=== PATIENT | male | born 1975 | race African-American/Black ===

== ENCOUNTER 2024-09-25 21:13 | Emergency (ER) | payer SELFPAY ==
[~2024-09-25] VITALS: Ht 170.2 cm; Wt 181.8 kg
[2024-09-26] MEDS ORDERED: CEPH-558 PO (01:25)
[2024-09-26] MEDS ORDERED: SULF-261 PO (01:25)
[2024-09-26] MEDS: CefTRIAXone SODIUM 1 GM/VIAL IM ONE (01:37)
[2024-09-26] MEDS: SULFAMETHOX/TRIMETH DS 800-160 MG/TABLET PO ONE (01:38)
[2024-09-26] MEDS: LIDOCAINE/PF 1% 2 ML VIAL IM ONE (01:38)
[2024-09-26 01:51] VITALS: BP 145/65; PULSE 89; RESP 18; TEMP 97.7; O2SAT 97
== END 2024-09-26 03:24 | disposition home or self-care (01) ==
LOC: EMS 21:13
DX: L03.311 Cellulitis of abdominal wall (principal); I10 Essential (primary) hypertension; Z79.899 Other long term (current) drug therapy; W57.XXXA Bitten or stung by nonvenomous insect and other nonvenomous arthropods, initial encounter
CPT/HCPCS: 99283; 96372; J0696; J3490

== ENCOUNTER 2024-10-24 22:42 | Emergency (ER) | payer MEDICAID ==
[~2024-10-24] VITALS: Ht 170.2 cm; Wt 159.1 kg
[~2024-10-24 22:42] MED LIST: CEPH-558 PO; SULF-261 PO
[2024-10-24 22:47] VITALS: BP 163/98; PULSE 96; RESP 18; TEMP 99; O2SAT 99
[2024-10-24 23:15] LABS: PLATELET COUNT (AUTO) 195 K/uL (150-450); RED BLOOD CELL COUNT(AUTO) 4.95 MIL/uL (4.50-5.90); RED CELL DISTRIBUTION WIDTH 14.4 % (11.5-14.5); WHITE BLOOD COUNT (AUTO) 5.5 K/uL (4.5-11.0)
[2024-10-24 23:24] LABS: CALCIUM, TOTAL 8.8 mg/dL (8.8-10.5); CREATININE 1.14 mg/dL (0.60-1.30); GLOMERULAR FILTR. RATE CALC > 60 mL/min (>60); GLUCOSE,RANDOM 94 mg/dL (70-110); SODIUM SERUM 137 mmol/L (136-145); UREA NITROGEN, BLOOD 10 mg/dL (7-18)
[2024-10-25 01:27] LABS: APPEARANCE,URINE HAZY (CLEAR); GLUCOSE, URINE (UA) NEGATIVE (NEGATIVE); LEUKOCYTE ESTERASE ,URINE NEGATIVE (NEGATIVE); NITRATE,URINE NEGATIVE (NEGATIVE); OCCULT BLOOD,URINE LARGE (NEGATIVE); SPECIFIC GRAVITIY, URINE 1.013 (1.003-1.030)
[2024-10-25 02:06] LABS: SQUAMOUS EPITHELIAL CELL,UR Few /LPF (None Seen)
== END 2024-10-25 04:13 | disposition home or self-care (01) ==
LOC: EMS 22:43
DX: R31.9 Hematuria, unspecified (principal); I10 Essential (primary) hypertension; Z79.899 Other long term (current) drug therapy
CPT/HCPCS: 74176; 80048; 81001; 85025; 99284